=== PATIENT | female | born 1975 | race Caucasian/White ===

== ENCOUNTER 2017-11-19 17:36 | Emergency (ER) | payer SELFPAY ==
[~2017-11-19] VITALS: Ht 167.6 cm; Wt 91.4 kg
[2017-11-19 17:44] VITALS: BP 127/83
[2017-11-19] MEDS ORDERED: ACETAMINOPHEN 325 MG TABLET ONE (18:51)
[2017-11-19] MEDS ORDERED: DIPH,PERTUSS(ACELL),TET VAC/PF 0.5 ML IM-VACC ONE ×2 (18:51→19:00)
[2017-11-19] MEDS ORDERED: LIDOCAINE-MPF 2% ,5ML ONE (18:51)
[2017-11-19] MEDS ORDERED: ACETAMINOPHEN 325 MG TABLET PO ONE (19:00)
[2017-11-19] MEDS ORDERED: LIDOCAINE-MPF 1%, 5ML INFIL ONE (19:00)
[2017-11-19] MEDS ORDERED: BACITRACIN ZINC OINT 500U/GM, 0.9 GM ONE (19:19)
== END 2017-11-19 19:31 | disposition home or self-care (01) ==
LOC: ED 19:10
DX: S01.01XA Laceration without foreign body of scalp, initial encounter (principal); W22.8XXA Striking against or struck by other objects, initial encounter; Y93.89 Activity, other specified; Y99.8 Other external cause status; Y92.828 Other wilderness area as the place of occurrence of the external cause
CPT/HCPCS: 12002; 90471; 90715; 99283

== ENCOUNTER 2017-12-01 08:32 | Emergency (ER) | payer SELFPAY ==
[~2017-12-01] VITALS: Ht 167.6 cm; Wt 91.3 kg
[2017-12-01 08:33] VITALS: BP 137/97
== END 2017-12-01 09:10 | disposition home or self-care (01) ==
LOC: ED 09:04
DX: S01.01XD Laceration without foreign body of scalp, subsequent encounter (principal); X58.XXXD Exposure to other specified factors, subsequent encounter
CPT/HCPCS: 99281